=== PATIENT | male | born 1955 | race Caucasian/White ===

== ENCOUNTER 2017-02-16 04:16 | Inpatient (IN) | payer OTHER ==
[2017-02-15 14:48] LABS: ASPARTATE AMINO TRANSFERASE 9 U/L (15-37); BLOOD UREA NITROGEN 15 mg/dL (7-18)
[~2017-02-16] VITALS: Ht 172.7 cm; Wt 82.0 kg
[~2017-02-16 04:16] MED LIST: ASPI-496 PO; FISH1CAP PO; FURO-92 PO; POTA20TA89 PO; PRED20TA PO
[2017-02-16] MEDS ORDERED: ALBUMIN HUMAN 5% 500 ML IV ONE (04:30)
[2017-02-16] MEDS ORDERED: CHLORHEXIDINE MOUTHWASH 15 ML UDC MM SCH (05:00)
[2017-02-16] MEDS ORDERED: METOPROLOL TARTRATE 25 MG TABLET PO ONE (05:00)
[2017-02-16] MEDS: MUPIROCIN OINT 2%, 22GM TP SCH ×2 (05:11→20:14)
[2017-02-16 05:24] VITALS: BP_SYST 123; BP_SYST 128; BP_DIAS 84
[2017-02-16] MEDS ORDERED: HYDROCORTISONE 100 MG INJ. ONE (06:27)
[2017-02-16] MEDS ORDERED: MIDAZOLAM 10MG/2 ML ONE (06:29)
[2017-02-16] MEDS ORDERED: FENTANYL PF 1000 MCG/20ML ONE (06:29)
[2017-02-16] MEDS ORDERED: POTASSIUM CHLORIDE 80 MEQ, SODIUM BICARBONATE 8.4% 10 MEQ, MAGNESIUM SULFATE 0.5 GM, LI... IV PRN (07:30)
[2017-02-16] MEDS ORDERED: DEXMEDETOMIDINE 200 MCG in SODIUM CHLORIDE 0.9% 48 ML IV SCH (07:30)
[2017-02-16] MEDS ORDERED: REGULAR INSULIN 62.5 UNITS in SODIUM CHLORIDE 0.9% 249.375 ML IV PRN ×2 (07:30→10:44)
[2017-02-16] MEDS ORDERED: EPINEPHRINE 2 MG in SODIUM CHLORIDE 0.9% 248 ML IV SCH (07:30)
[2017-02-16] MEDS ORDERED: PHENYLEPHRINE 10 MG in SODIUM CHLORIDE 0.9% 249 ML IV PRN ×2 (07:30→10:44)
[2017-02-16] MEDS ORDERED: VANCOMYCIN 1,100 MG in SODIUM CHLORIDE 0.9% 250 ML IV PRN (07:30)
[2017-02-16] MEDS ORDERED: CEFUROXIME 1.5 GM in SODIUM CHLORIDE 0.9% 50 ML IVPB PRN (07:30)
[2017-02-16] MEDS ORDERED: MANNITOL PMX 20% 500 ML IVPB PRN (07:30)
[2017-02-16] MEDS: SODIUM CHLORIDE FLUSH 10ML SYR IVF SCH ×3 (09:00→20:13)
[2017-02-16] MEDS ORDERED: FENTANYL PF 250 MCG/5ML ONE (09:20)
[2017-02-16] MEDS ORDERED: DEXMEDETOMIDINE 200 MCG in SODIUM CHLORIDE 0.9% 48 ML IV PRN (10:44)
[2017-02-16] MEDS ORDERED: SODIUM CHLORIDE 0.9% 1,000 ML IV ONE (10:44)
[2017-02-16] MEDS ORDERED: DOBUTAMINE 250 MG in SODIUM CHLORIDE 0.9% 230 ML IV PRN (10:44)
[2017-02-16] MEDS ORDERED: SODIUM CHLORIDE 0.9% 1,000 ML IV PRN (10:44)
[2017-02-16] MEDS ORDERED: NITROGLYCERIN/D5W PMX 250 ML IV PRN (10:44)
[2017-02-16] MEDS ORDERED: GLUCAGON 1 MG IM PRN (11:00)
[2017-02-16] MEDS ORDERED: LACTATED RINGERS 500 ML IVBOLUS PRN (11:00)
[2017-02-16] MEDS ORDERED: DEXTROSE 50%, 50ML SYRINGE IVPush PRN (11:00)
[2017-02-16] MEDS ORDERED: PROCHLORPERAZINE 5 MG/ML, 2ML IVPush PRN (11:00)
[2017-02-16] MEDS ORDERED: DEXTROSE 4 GM TAB.CHEW PO PRN (11:00)
[2017-02-16] MEDS ORDERED: MEPERIDINE/PF 25MG/0.5ML IVPush PRN (11:00)
[2017-02-16] MEDS ORDERED: BISACODYL 5 MG EC TABLET PO PRN (11:00)
[2017-02-16] MEDS ORDERED: BISACODYL 10 MG SUPP PR PRN (11:00)
[2017-02-16] MEDS ORDERED: MIDAZOLAM 1 MG/ML, 5ML IVPush PRN (11:00)
[2017-02-16] MEDS: KSCALE TO 4.5 IV SCH ×3 (11:00→23:00)
[2017-02-16] MEDS ORDERED: ACETAMINOPHEN 325 MG TABLET PO PRN (11:00)
[2017-02-16] MEDS ORDERED: EPINEPHRINE 2 MG in SODIUM CHLORIDE 0.9% 248 ML IV PRN (11:00)
[2017-02-16] MEDS ORDERED: ACETAMINOPHEN 650 MG SUPP PR PRN (11:00)
[2017-02-16] MEDS ORDERED: PROTAMINE SULFATE 10 MG/ML, 25ML ONE (11:09)
[2017-02-16] MEDS ORDERED: CALCIUM CHLORIDE 10%, 10ML SYR ONE (11:09)
[2017-02-16] MEDS ORDERED: AMINOCAPROIC ACID 250 MG/ML, 20ML ONE (11:09)
[2017-02-16] MEDS ORDERED: SODIUM BICARB 8.4%, 50ML SYRINGE ONE (11:09)
[2017-02-16] MEDS ORDERED: ALBUMIN HUMAN 25% 50 ML ONE (11:09)
[2017-02-16] MEDS ORDERED: methylPREDNISolone SOD SUCC 125 MG/2 ML ONE (11:10)
[2017-02-16] MEDS ORDERED: AMIODARONE 50 MG/ML, 3ML ONE (11:10)
[2017-02-16] MEDS ORDERED: LIDOCAINE 2% 100MG/5ML SYRINGE ONE (11:10)
[2017-02-16] MEDS ORDERED: HEPARIN 1,000 UNITS/ML, 30ML ONE (11:10)
[2017-02-16] MEDS ORDERED: VASOPRESSIN 20 UNIT/ML, 1ML ONE (11:11)
[2017-02-16] MEDS ORDERED: SODIUM BICARBONATE 1 MEQ/ML, 50ML VIAL ONE (11:12)
[2017-02-16 11:21] LABS: ABG COLLECTION SITE ARTERIAL LINE
[2017-02-16] MEDS: SODIUM BICARB 8.4%, 50ML SYRINGE IV PRN ×2 (11:43→12:52)
[2017-02-16] MEDS: morphine SULFATE 10 MG/ML, 1ML IVPush PRN ×3 (12:51→21:45)
[2017-02-16] MEDS ORDERED: POTASSIUM CHLORIDE PMX 100 ML IVPB ONE (13:30)
[2017-02-16] MEDS: MAGNESIUM SULFATE 1 GM in SODIUM CHLORIDE 0.9% 50 ML IVPB SCH (15:42)
[2017-02-16] MEDS: HYDROcodone/APAP 10/325 MG TABLET PO PRN ×2 (16:29→21:45)
[2017-02-16] MEDS ORDERED: ROCURONIUM 10 MG/ML ONE (16:59)
[2017-02-16] MEDS: CEFUROXIME 1.5 GM in SODIUM CHLORIDE 0.9% 50 ML IVPB SCH (18:37)
[2017-02-16] MEDS: VANCOMYCIN 1,100 MG in SODIUM CHLORIDE 0.9% 250 ML IVPB SCH (19:20)
[2017-02-16] MEDS: OXYcodone IR 5MG TABLET PO PRN (19:23)
[2017-02-16] MEDS: DOCUSATE 100 MG CAPSULE PO SCH (20:14)
[2017-02-16] MEDS: MUPIROCIN OINT 2%, 22GM NAS SCH (20:14)
[2017-02-16] MEDS: INSULIN ASPART 100 UNITS/ML, PEN SQ-INSULIN SCH ×4 (20:15→22:58)
[2017-02-16] MEDS ORDERED: POTASSIUM CHLORIDE PMX 100 ML IV ONE (23:45)
[2017-02-17] MEDS: INSULIN ASPART 100 UNITS/ML, PEN SQ-INSULIN SCH ×5 (00:12→16:55)
[2017-02-17] MEDS: OXYcodone IR 5MG TABLET PO PRN ×5 (00:18→20:20)
[2017-02-17] MEDS: ONDANSETRON 2MG/ML, 2ML IVPush PRN ×2 (03:13→07:34)
[2017-02-17] MEDS: HYDROcodone/APAP 10/325 MG TABLET PO PRN (04:25)
[2017-02-17] MEDS: KSCALE TO 4.5 IV SCH (05:00)
[2017-02-17 05:48] LABS: ABG COLLECTION SITE RIGHT RADIAL; COLLATERAL CIRCULATION TESTING NORMAL
[2017-02-17 06:16] LABS: BLOOD UREA NITROGEN 18 mg/dL (7-18)
[2017-02-17] MEDS: CEFUROXIME 1.5 GM in SODIUM CHLORIDE 0.9% 50 ML IVPB SCH (06:34)
[2017-02-17] MEDS: VANCOMYCIN 1,100 MG in SODIUM CHLORIDE 0.9% 250 ML IVPB SCH (07:34)
[2017-02-17] MEDS ORDERED: MAGNESIUM HYDROXIDE 8%, 30ML UDC PO PRN (08:30)
[2017-02-17] MEDS: FUROSEMIDE 20 MG/2 ML IV SCH ×2 (08:39→16:29)
[2017-02-17] MEDS: PANTOPRAZOLE 40 MG IV IVPush SCH (08:40)
[2017-02-17] MEDS: SODIUM CHLORIDE FLUSH 10ML SYR IVF SCH ×4 (08:40→20:19)
[2017-02-17] MEDS: DOCUSATE 100 MG CAPSULE PO SCH ×2 (08:41→20:19)
[2017-02-17] MEDS: ASPIRIN 81 MG TABLET EC PO SCH (08:47)
[2017-02-17] MEDS: AMIODARONE 200 MG TABLET PO SCH ×2 (08:47→20:20)
[2017-02-17] MEDS: LISINOPRIL 5 MG TABLET PO SCH (08:48)
[2017-02-17] MEDS: MUPIROCIN OINT 2%, 22GM NAS SCH ×2 (08:50→20:19)
[2017-02-17] MEDS: MUPIROCIN OINT 2%, 22GM TP SCH ×2 (09:30→20:20)
[2017-02-17] MEDS: CHLORHEXIDINE MOUTHWASH 15 ML UDC MM SCH ×2 (13:33→20:20)
[2017-02-17] MEDS: POTASSIUM CHLORIDE 10 MEQ TABLET.ER PO SCH ×2 (13:33→17:39)
[2017-02-17] MEDS: MAGNESIUM SULFATE 1 GM in SODIUM CHLORIDE 0.9% 50 ML IVPB SCH (13:34)
[2017-02-17] MEDS ORDERED: AMLODIPINE 5 MG TABLET PO ONE (15:00)
[2017-02-17] MEDS ORDERED: WARFARIN 7.5 MG TABLET PO-COUM ONE (18:00)
[2017-02-17] MEDS ORDERED: SODIUM CHLORIDE FLUSH 10ML SYR IVF SCH (21:00)
[2017-02-18] MEDS: INSULIN ASPART 100 UNITS/ML, PEN SQ-INSULIN SCH ×4 (00:41→16:22)
[2017-02-18] MEDS: OXYcodone IR 5MG TABLET PO PRN (02:53)
[2017-02-18 04:37] LABS: BLOOD UREA NITROGEN 18 mg/dL (7-18)
[2017-02-18] MEDS: ONDANSETRON 2MG/ML, 2ML IVPush PRN ×2 (07:46→14:06)
[2017-02-18] MEDS: FUROSEMIDE 20 MG/2 ML IV SCH ×2 (07:47→16:22)
[2017-02-18] MEDS: SODIUM CHLORIDE FLUSH 10ML SYR IVF SCH ×4 (07:47→21:38)
[2017-02-18] MEDS: CHLORHEXIDINE MOUTHWASH 15 ML UDC MM SCH ×2 (07:47→21:45)
[2017-02-18] MEDS: POTASSIUM CHLORIDE 10 MEQ TABLET.ER PO SCH ×2 (07:48→16:21)
[2017-02-18] MEDS: MUPIROCIN OINT 2%, 22GM NAS SCH ×2 (08:18→21:38)
[2017-02-18] MEDS: PANTOPRAZOLE 40 MG IV IVPush SCH (08:25)
[2017-02-18] MEDS: DOCUSATE 100 MG CAPSULE PO SCH ×2 (08:25→21:38)
[2017-02-18] MEDS: ASPIRIN 81 MG TABLET EC PO SCH (08:26)
[2017-02-18] MEDS: LISINOPRIL 5 MG TABLET PO SCH (08:26)
[2017-02-18] MEDS: AMIODARONE 200 MG TABLET PO SCH ×2 (08:26→21:39)
[2017-02-18] MEDS: AMLODIPINE 5 MG TABLET PO SCH (08:27)
[2017-02-18] MEDS: MUPIROCIN OINT 2%, 22GM TP SCH ×2 (08:27→21:00)
[2017-02-18] MEDS: ENOXAPARIN 40 MG/0.4 ML SQ SCH (08:27)
[2017-02-18] MEDS: MAGNESIUM SULFATE 1 GM in SODIUM CHLORIDE 0.9% 50 ML IVPB SCH (11:23)
[2017-02-18] MEDS ORDERED: WARFARIN 5 MG TABLET PO-COUM ONE (18:00)
[2017-02-18] MEDS ORDERED: WARFARIN 3 MG TABLET PO-COUM ONE (18:00)
[2017-02-18 20:09] VITALS: BP 111/71
[2017-02-18] MEDS: HYDROcodone/APAP 5/325 TABLET PO PRN (21:40)
[2017-02-18] MEDS: INSULIN ASPART 100 UNITS/ML, PEN SQ-INSULIN PRN (21:55)
[2017-02-19 02:30] VITALS: BP 101/67
[2017-02-19 05:05] LABS: BLOOD UREA NITROGEN 17 mg/dL (7-18)
[2017-02-19 07:45] VITALS: BP 114/75
[2017-02-19] MEDS: POTASSIUM CHLORIDE 10 MEQ TABLET.ER PO SCH ×2 (08:33→17:16)
[2017-02-19] MEDS: PANTOPROZOLE 40MG TABLET PO SCH (08:33)
[2017-02-19] MEDS: SODIUM CHLORIDE FLUSH 10ML SYR IVF SCH ×4 (08:33→21:00)
[2017-02-19] MEDS: FUROSEMIDE 20 MG/2 ML IV SCH ×2 (08:33→17:16)
[2017-02-19] MEDS: DOCUSATE 100 MG CAPSULE PO SCH ×2 (08:34→22:26)
[2017-02-19] MEDS: MUPIROCIN OINT 2%, 22GM NAS SCH ×2 (08:34→22:26)
[2017-02-19] MEDS: ASPIRIN 81 MG TABLET EC PO SCH (08:34)
[2017-02-19] MEDS: ENOXAPARIN 40 MG/0.4 ML SQ SCH (08:35)
[2017-02-19] MEDS: MUPIROCIN OINT 2%, 22GM TP SCH ×2 (08:35→21:00)
[2017-02-19] MEDS: LISINOPRIL 5 MG TABLET PO SCH (08:35)
[2017-02-19] MEDS: AMLODIPINE 5 MG TABLET PO SCH (08:35)
[2017-02-19] MEDS: HYDROcodone/APAP 5/325 TABLET PO PRN ×2 (10:20→22:26)
[2017-02-19] MEDS: WARFARIN MODERAT DOSE PROTOCOL XX SCH (12:00)
[2017-02-19] MEDS: INSULIN ASPART 100 UNITS/ML, PEN SQ-INSULIN PRN (12:37)
[2017-02-19] MEDS ORDERED: HEPARIN 25,000 UNITS/500ML PMX 500 ML IV PRN (13:00)
[2017-02-19] MEDS ORDERED: HEPARIN 5,000 UNITS/ML, 1ML IV ONE (13:00)
[2017-02-19] MEDS ORDERED: HEPARIN 5,000 UNITS/ML, 1ML IV PRN (13:00)
[2017-02-19 15:50] VITALS: BP 107/71
[2017-02-19] MEDS: INSULIN ASPART 100 UNITS/ML, PEN SQ-INSULIN SCH (17:17)
[2017-02-19] MEDS ORDERED: WARFARIN 5 MG TABLET PO-COUM ONE (18:00)
[2017-02-19 20:00] VITALS: BP 107/66
[2017-02-20 04:32] VITALS: BP 110/72
[2017-02-20 05:40] LABS: BLOOD UREA NITROGEN 15 mg/dL (7-18)
[2017-02-20] MEDS: SODIUM CHLORIDE FLUSH 10ML SYR IVF SCH ×4 (08:13→21:00)
[2017-02-20] MEDS: MUPIROCIN OINT 2%, 22GM TP SCH ×2 (08:15→21:00)
[2017-02-20] MEDS: POTASSIUM CHLORIDE 10 MEQ TABLET.ER PO SCH ×2 (08:23→16:39)
[2017-02-20] MEDS: PANTOPROZOLE 40MG TABLET PO SCH (08:23)
[2017-02-20] MEDS: LISINOPRIL 5 MG TABLET PO SCH (08:24)
[2017-02-20] MEDS: AMLODIPINE 5 MG TABLET PO SCH (08:25)
[2017-02-20] MEDS: DOCUSATE 100 MG CAPSULE PO SCH ×2 (08:25→20:52)
[2017-02-20] MEDS: ASPIRIN 81 MG TABLET EC PO SCH (08:26)
[2017-02-20] MEDS: FUROSEMIDE 20 MG/2 ML IV SCH ×2 (08:29→16:40)
[2017-02-20] MEDS: MUPIROCIN OINT 2%, 22GM NAS SCH ×2 (09:00→20:52)
[2017-02-20] MEDS: HYDROcodone/APAP 5/325 TABLET PO PRN (10:56)
[2017-02-20 11:51] VITALS: BP 109/75
[2017-02-20] MEDS: WARFARIN MODERAT DOSE PROTOCOL XX SCH (12:00)
[2017-02-20] MEDS ORDERED: PHARMACOKINETIC CONSULTATION MC ONE (13:30)
[2017-02-20 15:30] VITALS: BP 137/74
[2017-02-20 19:00] VITALS: BP 103/70
[2017-02-20] MEDS: OXYcodone IR 5MG TABLET PO PRN (21:49)
[2017-02-21 02:00] VITALS: BP 112/76
[2017-02-21 06:08] LABS: BLOOD UREA NITROGEN 17 mg/dL (7-18)
[2017-02-21] MEDS: WARFARIN MODERAT DOSE PROTOCOL XX SCH (07:28)
[2017-02-21 07:46] VITALS: BP 114/79
[2017-02-21] MEDS: PANTOPROZOLE 40MG TABLET PO SCH (07:47)
[2017-02-21] MEDS: FUROSEMIDE 20 MG/2 ML IV SCH (07:47)
[2017-02-21] MEDS: ASPIRIN 81 MG TABLET EC PO SCH (07:48)
[2017-02-21] MEDS: SODIUM CHLORIDE FLUSH 10ML SYR IVF SCH ×2 (07:48)
[2017-02-21] MEDS: POTASSIUM CHLORIDE 10 MEQ TABLET.ER PO SCH (07:48)
[2017-02-21] MEDS: MUPIROCIN OINT 2%, 22GM NAS SCH (07:48)
[2017-02-21] MEDS: DOCUSATE 100 MG CAPSULE PO SCH (07:48)
[2017-02-21] MEDS: LISINOPRIL 5 MG TABLET PO SCH (07:49)
[2017-02-21] MEDS: MUPIROCIN OINT 2%, 22GM TP SCH (07:49)
[2017-02-21] MEDS: AMLODIPINE 5 MG TABLET PO SCH (07:49)
[2017-02-21 12:51] VITALS: BP 105/73
[2017-02-21] MEDS ORDERED: ASPI-496 PO ×2 (17:30→17:33)
[2017-02-21] MEDS ORDERED: OXYC1TAB7 PO (17:37)
[2017-02-21] MEDS ORDERED: PANT40GR PO (17:39)
[2017-02-21] MEDS ORDERED: AMLO5TAB4 PO (17:40)
[2017-02-21] MEDS ORDERED: LISI5TAB7 PO (17:41)
[2017-02-21] MEDS ORDERED: WARF5TAB PO (17:41)
[2017-02-21] MEDS ORDERED: AMLO10TA2 PO (18:03)
[2017-02-21] MEDS: HYDROcodone/APAP 5/325 TABLET PO PRN (18:08)
[2017-02-21] MEDS ORDERED: AMLO5TAB2 PO (18:08)
== END 2017-02-21 18:24 | disposition home or self-care (01) | DRG 221 ==
LOC: 5SO 04:16 → CCU 07:56 → 5SO 02-18 12:38
PROVIDERS: ADMIT Thoracic Surgery (Cardiothoracic Vascular Surgery); ATTEND Thoracic Surgery (Cardiothoracic Vascular Surgery)
PROC: 02580ZZ Destruction of Conduction Mechanism, Open Approach (ICD-10-PCS; 2017-02-16)
PROC: 5A1221Z Performance of Cardiac Output, Continuous (ICD-10-PCS; 2017-02-16)
PROC: 02L70ZK Occlusion of Left Atrial Appendage, Open Approach (ICD-10-PCS; 2017-02-16)
PROC: 02UG0JZ Supplement Mitral Valve with Synthetic Substitute, Open Approach (ICD-10-PCS; principal; 2017-02-16 07:30)
DX: I34.1 Nonrheumatic mitral (valve) prolapse (principal); I48.91 Unspecified atrial fibrillation; E78.5 Hyperlipidemia, unspecified; I10 Essential (primary) hypertension; I25.10 Atherosclerotic heart disease of native coronary artery without angina pectoris; F17.210 Nicotine dependence, cigarettes, uncomplicated; M06.9 Rheumatoid arthritis, unspecified; Z79.01 Long term (current) use of anticoagulants; Z79.52 Long term (current) use of systemic steroids; Z79.899 Other long term (current) drug therapy
CPT/HCPCS: 36415; 36600; 71010; 71020; 80048; 80053; 81003; 82040; 82330; 82800; 82803; 82810; 82947; 82962; 83036; 83735; 84132; 84295; 85014; 85018; 85025; 85049; 85347; 85610; 85730; 86850; 86900; 86923; 87081; 88305; 93005; 93312; 93321; 93325; 93880; 94002; J0697; J1644; J1650; J1815; J2250; J2405; J2720; J3010; J3370; J3475; J3480; J3490; P9045; P9047; C1751; C1760; C9113; J0171; J0282; J1720; J1940; J2270; J2370; J2930; J7030; J7050; J7512